=== PATIENT | male | born 1990 | race Caucasian/White ===

== ENCOUNTER → 2022-03-20 14:15 | Outpatient (CLI) | payer OTHER, SELFPAY ==
[2022-03-20 17:52] LABS: Basophils # 0.2 K/mm3 (0-0.2); Basophils % 3.3 % (0.1-2.0); Eosinophils % 0.6 % (0.1-12.0); Hematocrit 44.1 % (42.0-52.0); Hemoglobin 15.2 g/dL (14.1-18.0); Lymphocytes # 1.4 K/mm3 (0.7-4.5); Lymphocytes % 22.7 % (10-50); Mean Corpuscular HGB Conc 34.6 g/dL (31.8-35.4); Mean Corpuscular Hemoglobin 31.2 pg (27.0-31.2); Mean Corpuscular Volume 90.3 fl (80-94); Monocytes # 0.2 K/mm3 (0.1-1.0); Monocytes % 3.4 % (1.7-9.3); Neutrophils # 4.2 K/mm3 (1.8-7.8); Platelet Count 275 K/mm3 (142-424); Red Blood Count 4.88 M/mm3 (4.60-6.20); Red Cell Distribution Width 13.4 % (11.5-17.5)
[2022-03-20 17:55] LABS: Alanine Aminotransferase 19 U/L (12-78); Albumin Level 4.8 g/dl (3.5-5.0); Albumin/Globulin Ratio 1.8 (1.1-1.8); Alkaline Phosphatase 101 U/L (38-126); Anion Gap 10.7 mEq/L (5-15); Aspartate Amino Transferase 29 U/L (17-59); Bilirubin,Total 0.5 mg/dl (0.2-1.3); Blood Urea Nitrogen 8 mg/dl (9-20); Calcium 9.6 mg/dl (8.4-10.2); Carbon Dioxide 28 mmol/L (22.0-30.0); Chloride 104 mmol/L (98-107); Chol/HDL Ratio 3.4 (1-3.5); Cholesterol 165 mg/dl (140-200); Estimated Glomerular Filt Rate 111 ml/min (>60); GFR (African American) 135 ML/MIN (>60); Globulin 2.6 g/dL (1.3-3.2); Glucose 101 mg/dl (74-100); HDL Cholesterol 48 mg/dl (40-60); Potassium 3.7 mmoL/L (3.5-5.1); Sodium 139 mmol/L (136-145); Total Protein,Serum 7.4 g/dl (6.3-8.2); Triglycerides 57 mg/dl (30-150); VLDL Cholesterol 11 mg/dL (0-40)
[2022-03-20 18:06] LABS: Direct LDL Cholesterol 99.28 mg/dL (100-129)
[2022-03-20 18:11] LABS: Free T4 (Free Thyroxine) 1.24 ng/dl (0.78-2.19)
[2022-03-20 18:26] LABS: Thyroid Stimulating Hormone 0.69 uIU/mL (0.465-4.68)
== END ==
PROVIDERS: PCP Emergency Medicine; Visit Provider Emergency Medicine
DX: R53.83 Other fatigue (principal)
CPT/HCPCS: 80053; 80061; 84439; 84443; 85025

== ENCOUNTER → 2022-04-08 14:22 | Outpatient (CLI) | payer OTHER, SELFPAY ==
[2022-04-08 14:18] LABS: Amphetamine/Metha Screen,Urine Negative ng/ml (<1000)
[2022-04-08 14:19] LABS: Barbiturates Screen,Urine Negative ng/ml (<200)
[2022-04-08 14:20] LABS: Benzodiazepines Screen,Urine Negative ng/ml (<200)
[2022-04-08 14:21] LABS: Cannabinoid Screen,Urine Positive ng/ml (<50); Cocaine Screen,Urine Negative ng/ml (<300)
[2022-04-08 14:23] LABS: Methadone Screen,Urine Negative ng/ml (<300)
[2022-04-08 14:24] LABS: Opiate Screen,Urine Positive ng/ml (<300); Phencyclidine Screen,Urine Negative ng/ml (<25)
== END ==
PROVIDERS: PCP Emergency Medicine; Visit Provider Emergency Medicine
DX: Z79.899 Other long term (current) drug therapy (principal)
CPT/HCPCS: 80305

== ENCOUNTER → 2022-05-06 17:19 | Outpatient (CLI) | payer OTHER, SELFPAY ==
[2022-05-06 17:28] LABS: Adenovirus,PCR Not Detected (NotDetected); Bordetella Pertussis Not Detected (NotDetected); Chlamydophila Pneumoniae, PCR Not Detected (NotDetected); Coronavirus 229E Not Detected (NotDetected); Coronavirus NL63 Not Detected (NotDetected); Coronavirus OC43 Not Detected (NotDetected); Coronovirus HKU1,PCR Not Detected (NotDetected); Human Metapneumovirus Not Detected (NotDetected); Influenza A, PCR Not Detected (NotDetected); Influenza AH1, 2009 Not Detected (NotDetected); Influenza AH1, PCR Not Detected (NotDetected); Influenza AH3,PCR Not Detected (NotDetected); Influenza B, PCR Not Detected (NotDetected); Mycoplasma Pneumoniae, PCR Not Detected (NotDetected); Parainfluenza 1, PCR Not Detected (NotDetected); Parainfluenza 2, PCR Not Detected (NotDetected); Parainfluenza 3, PCR Not Detected (NotDetected); Parainfluenza 4, PCR Not Detected (NotDetected); Respiratory Syncytial Virus Not Detected (NotDetected); Rhinovirus/Enterovirus Not Detected (NotDetected)
[2022-05-06 23:16] LABS: Coronavirus 19, PCR Detected (NotDetected)
== END ==
PROVIDERS: PCP Nurse Practitioner Family; Visit Provider Nurse Practitioner Family
DX: U07.1 COVID-19 (principal)
CPT/HCPCS: 87581; 87632; 87798; C9803; U0003; U0005

== ENCOUNTER → 2022-05-07 06:32 | Outpatient (CLI) | payer OTHER, SELFPAY | PROVIDERS: PCP Nurse Practitioner Family; Visit Provider Nurse Practitioner Family | DX: U07.1 COVID-19 (principal) ==

== ENCOUNTER → 2022-07-21 15:45 | Outpatient (CLI) | payer OTHER, SELFPAY ==
[2022-07-21 19:02] LABS: Barbiturates Screen,Urine Negative ng/ml (<200)
[2022-07-21 19:03] LABS: Amphetamine/Metha Screen,Urine Negative ng/ml (<1000)
[2022-07-21 19:04] LABS: Benzodiazepines Screen,Urine Negative ng/ml (<200); Cannabinoid Screen,Urine Positive ng/ml (<50)
[2022-07-21 19:05] LABS: Cocaine Screen,Urine Negative ng/ml (<300); Methadone Screen,Urine Negative ng/ml (<300)
[2022-07-21 19:06] LABS: Opiate Screen,Urine Positive ng/ml (<300)
[2022-07-21 19:07] LABS: Phencyclidine Screen,Urine Negative ng/ml (<25)
== END ==
PROVIDERS: PCP Emergency Medicine; Visit Provider Emergency Medicine
DX: Z79.899 Other long term (current) drug therapy (principal)
CPT/HCPCS: 80305

== ENCOUNTER → 2022-08-28 15:20 | Outpatient (CLI) | payer OTHER, SELFPAY ==
[2022-08-28 20:15] LABS: Amphetamine/Metha Screen,Urine Negative ng/ml (<1000)
[2022-08-28 20:16] LABS: Barbiturates Screen,Urine Negative ng/ml (<200)
[2022-08-28 20:17] LABS: Benzodiazepines Screen,Urine Negative ng/ml (<200); Cannabinoid Screen,Urine Negative ng/ml (<50)
[2022-08-28 20:18] LABS: Cocaine Screen,Urine Negative ng/ml (<300); Methadone Screen,Urine Negative ng/ml (<300)
[2022-08-28 20:19] LABS: Opiate Screen,Urine Negative ng/ml (<300)
[2022-08-28 20:20] LABS: Phencyclidine Screen,Urine Negative ng/ml (<25)
== END ==
PROVIDERS: PCP Emergency Medicine; Visit Provider Emergency Medicine
DX: Z79.899 Other long term (current) drug therapy (principal)
CPT/HCPCS: 80305

== ENCOUNTER → 2022-10-26 09:30 | Outpatient (CLI) | payer OTHER, SELFPAY ==
[2022-10-26 19:22] LABS: Amphetamine/Metha Screen,Urine Negative ng/ml (<1000)
[2022-10-26 19:23] LABS: Barbiturates Screen,Urine Negative ng/ml (<200)
[2022-10-26 19:24] LABS: Benzodiazepines Screen,Urine Negative ng/ml (<200); Cannabinoid Screen,Urine Positive ng/ml (<50)
[2022-10-26 19:25] LABS: Cocaine Screen,Urine Negative ng/ml (<300); Methadone Screen,Urine Negative ng/ml (<300)
[2022-10-26 19:27] LABS: Opiate Screen,Urine Positive ng/ml (<300); Phencyclidine Screen,Urine Negative ng/ml (<25)
== END ==
PROVIDERS: PCP Emergency Medicine; Visit Provider Emergency Medicine
DX: Z79.899 Other long term (current) drug therapy (principal)
CPT/HCPCS: 80305

== ENCOUNTER → 2022-12-18 13:57 | Outpatient (CLI) | payer OTHER, SELFPAY ==
[2022-12-18 16:10] LABS: Amphetamine/Metha Screen,Urine Negative ng/ml (<1000)
[2022-12-18 16:11] LABS: Barbiturates Screen,Urine Negative ng/ml (<200)
[2022-12-18 16:12] LABS: Benzodiazepines Screen,Urine Negative ng/ml (<200); Cannabinoid Screen,Urine Positive ng/ml (<50)
[2022-12-18 16:13] LABS: Cocaine Screen,Urine Negative ng/ml (<300)
[2022-12-18 16:14] LABS: Methadone Screen,Urine Negative ng/ml (<300)
[2022-12-18 16:20] LABS: Phencyclidine Screen,Urine Negative ng/ml (<25)
[2022-12-18 16:22] LABS: Opiate Screen,Urine Negative ng/ml (<300)
== END ==
PROVIDERS: PCP Emergency Medicine; Visit Provider Emergency Medicine
DX: M54.12 Radiculopathy, cervical region (principal)
CPT/HCPCS: 80305

== ENCOUNTER → 2023-02-10 10:04 | Outpatient (CLI) | payer OTHER, SELFPAY ==
[2023-02-10 14:39] LABS: Amphetamine/Metha Screen,Urine Negative ng/ml (<1000); Barbiturates Screen,Urine Negative ng/ml (<200)
[2023-02-10 14:40] LABS: Benzodiazepines Screen,Urine Negative ng/ml (<200)
[2023-02-10 14:41] LABS: Cannabinoid Screen,Urine Positive ng/ml (<50); Cocaine Screen,Urine Negative ng/ml (<300)
[2023-02-10 14:42] LABS: Methadone Screen,Urine Negative ng/ml (<300)
[2023-02-10 14:43] LABS: Opiate Screen,Urine Positive ng/ml (<300); Phencyclidine Screen,Urine Negative ng/ml (<25)
== END ==
PROVIDERS: PCP Emergency Medicine; Visit Provider Emergency Medicine
DX: Z79.899 Other long term (current) drug therapy (principal)
CPT/HCPCS: 80305

== ENCOUNTER → 2023-04-09 13:42 | Outpatient (CLI) | payer OTHER, SELFPAY ==
[2023-04-09 14:06] LABS: Amphetamine/Metha Screen,Urine Negative ng/ml (<1000); Barbiturates Screen,Urine Negative ng/ml (<200)
[2023-04-09 14:07] LABS: Benzodiazepines Screen,Urine Negative ng/ml (<200)
[2023-04-09 14:08] LABS: Cannabinoid Screen,Urine Positive ng/ml (<50); Cocaine Screen,Urine Negative ng/ml (<300)
[2023-04-09 14:09] LABS: Methadone Screen,Urine Negative ng/ml (<300)
[2023-04-09 14:10] LABS: Opiate Screen,Urine Negative ng/ml (<300); Phencyclidine Screen,Urine Negative ng/ml (<25)
== END ==
PROVIDERS: PCP Emergency Medicine; Visit Provider Emergency Medicine
DX: M54.12 Radiculopathy, cervical region (principal)
CPT/HCPCS: 80305

== ENCOUNTER → 2023-06-07 23:23 | Outpatient (CLI) | payer OTHER, SELFPAY ==
[2023-06-07 19:19] LABS: Amphetamine/Metha Screen,Urine Negative ng/ml (<1000); Barbiturates Screen,Urine Negative ng/ml (<200); Benzodiazepines Screen,Urine Negative ng/ml (<200); Cannabinoid Screen,Urine Positive ng/ml (<50); Cocaine Screen,Urine Negative ng/ml (<300); Methadone Screen,Urine Negative ng/ml (<300); Opiate Screen,Urine Positive ng/ml (<300); Phencyclidine Screen,Urine Negative ng/ml (<25)
== END ==
PROVIDERS: PCP Emergency Medicine; Visit Provider Emergency Medicine
DX: Z79.899 Other long term (current) drug therapy (principal)
CPT/HCPCS: 80305

== ENCOUNTER → 2023-08-30 16:31 | Outpatient (CLI) | payer OTHER, SELFPAY ==
[2023-08-30 11:30] LABS: Chloride 102 mmol/L (98-107); Potassium 4.2 mmoL/L (3.5-5.1); Sodium 140 mmol/L (136-145)
[2023-08-30 11:32] LABS: Alanine Aminotransferase 33 U/L (12-78); Aspartate Amino Transferase 40 U/L (17-59); Blood Urea Nitrogen 6 mg/dl (9-20); Estimated Glomerular Filt Rate 110 ml/min (>60); GFR (African American) 133 ML/MIN (>60)
[2023-08-30 11:33] LABS: Albumin Level 4.7 g/dl (3.5-5.0); Albumin/Globulin Ratio 1.7 (1.1-1.8); Alkaline Phosphatase 79 U/L (38-126); Anion Gap 13.2 mEq/L (5-15); Basophils # 0.1 K/mm3 (0-0.2); Basophils % 0.7 % (0.1-2.0); Bilirubin,Total 0.4 mg/dl (0.2-1.3); Calcium 9.3 mg/dl (8.4-10.2); Carbon Dioxide 29 mmol/L (22.0-30.0); Chol/HDL Ratio 4.5 (1-3.5); Cholesterol 197 mg/dl (140-200); Eosinophils # 0.3 K/mm3 (0.0-0.4); Eosinophils % 4.5 % (0.1-12.0); Globulin 2.8 g/dL (1.3-3.2); Glucose 147 mg/dl (74-100); HDL Cholesterol 44 mg/dl (40-60); Hematocrit 45.9 % (42.0-52.0); Lymphocytes % 26.9 % (10-50); Mean Corpuscular Hemoglobin 32.3 pg (27.0-31.2); Mean Corpuscular Volume 92.3 fl (80-94); Monocytes # 0.4 K/mm3 (0.1-1.0); Monocytes % 4.9 % (1.7-9.3); Neutrophils # 4.6 K/mm3 (1.8-7.8); Neutrophils % 62.9 % (37.0-80.0); Platelet Count 206 K/mm3 (142-424); Red Blood Count 4.97 M/mm3 (4.60-6.20); Red Cell Distribution Width 13.4 % (11.5-17.5); Total Protein,Serum 7.5 g/dl (6.3-8.2); Triglycerides 146 mg/dl (30-150); VLDL Cholesterol 29 mg/dL (0-40); White Blood Count 7.4 K/mm3 (4.8-10.8)
[2023-08-30 11:44] LABS: Direct LDL Cholesterol 119.83 mg/dL (100-129)
[2023-08-30 11:49] LABS: 25-OH Vitamin D, Total 33.9 ng/mL (30-100); T4 (Thyroxine) 5.4 ug/dl (5.53-11.0)
[2023-08-30 12:02] LABS: Thyroid Stimulating Hormone 0.56 uIU/mL (0.465-4.68)
[2023-08-30 12:53] LABS: Barbiturates Screen,Urine Negative ng/ml (<200)
[2023-08-30 12:54] LABS: Benzodiazepines Screen,Urine Positive ng/ml (<200)
[2023-08-30 12:55] LABS: Amphetamine/Metha Screen,Urine Negative ng/ml (<1000)
[2023-08-30 12:56] LABS: Cocaine Screen,Urine Negative ng/ml (<300)
[2023-08-30 12:57] LABS: Cannabinoid Screen,Urine Positive ng/ml (<50); Methadone Screen,Urine Negative ng/ml (<300)
[2023-08-30 12:58] LABS: Opiate Screen,Urine Positive ng/ml (<300)
[2023-08-30 12:59] LABS: Phencyclidine Screen,Urine Negative ng/ml (<25)
[2023-08-30 19:41] LABS: Hemoglobin A1C 5.3 % (4.0-6.0)
== END ==
PROVIDERS: PCP Emergency Medicine; Visit Provider Emergency Medicine
DX: M79.2 Neuralgia and neuritis, unspecified (principal); Z79.899 Other long term (current) drug therapy; E11.9 Type 2 diabetes mellitus without complications; Z68.21 Body mass index [BMI] 21.0-21.9, adult
CPT/HCPCS: 80053; 80061; 80305; 82306; 83036; 84436; 84443; 85025

== ENCOUNTER → 2023-09-20 16:19 | Outpatient (CLI) | payer OTHER, SELFPAY ==
[2023-09-20 16:18] LABS: Amphetamine/Metha Screen,Urine Negative ng/ml (<1000)
[2023-09-20 16:19] LABS: Barbiturates Screen,Urine Negative ng/ml (<200)
[2023-09-20 16:20] LABS: Cannabinoid Screen,Urine Positive ng/ml (<50)
[2023-09-20 16:21] LABS: Cocaine Screen,Urine Negative ng/ml (<300); Methadone Screen,Urine Negative ng/ml (<300)
[2023-09-20 16:22] LABS: Opiate Screen,Urine Negative ng/ml (<300)
[2023-09-20 16:23] LABS: Phencyclidine Screen,Urine Negative ng/ml (<25)
[2023-09-20 18:38] LABS: Benzodiazepines Screen,Urine Negative ng/ml (<200)
== END ==
PROVIDERS: PCP Emergency Medicine; Visit Provider Emergency Medicine
DX: M79.2 Neuralgia and neuritis, unspecified (principal); Z79.899 Other long term (current) drug therapy
CPT/HCPCS: 80305

== ENCOUNTER → 2023-10-27 08:46 | Outpatient (CLI) | payer OTHER, SELFPAY ==
[2023-10-27 21:45] LABS: Amphetamine/Metha Screen,Urine Negative ng/ml (<1000); Barbiturates Screen,Urine Negative ng/ml (<200)
[2023-10-27 21:46] LABS: Benzodiazepines Screen,Urine Negative ng/ml (<200)
[2023-10-27 21:47] LABS: Cannabinoid Screen,Urine Positive ng/ml (<50); Cocaine Screen,Urine Negative ng/ml (<300)
[2023-10-27 21:48] LABS: Methadone Screen,Urine Negative ng/ml (<300); Opiate Screen,Urine Positive ng/ml (<300)
[2023-10-27 21:50] LABS: Phencyclidine Screen,Urine Negative ng/ml (<25)
== END ==
LOC: LAB.DROPOF 11-03 08:46
PROVIDERS: PCP Internal Medicine; Visit Provider Internal Medicine
DX: Z79.899 Other long term (current) drug therapy (principal)
CPT/HCPCS: 80307

== ENCOUNTER 2023-11-22 12:27 | Outpatient (CLI) | payer OTHER, SELFPAY ==
[2023-11-22 18:39] LABS: Amphetamine/Metha Screen,Urine Negative ng/ml (<1000); Barbiturates Screen,Urine Negative ng/ml (<200); Benzodiazepines Screen,Urine Negative ng/ml (<200); Cannabinoid Screen,Urine Positive ng/ml (<50); Cocaine Screen,Urine Negative ng/ml (<300); Methadone Screen,Urine Negative ng/ml (<300); Opiate Screen,Urine Positive ng/ml (<300); Phencyclidine Screen,Urine Negative ng/ml (<25)
== END 2023-11-22 23:59 ==
LOC: LAB.DROPOF 12:28
PROVIDERS: PCP Internal Medicine; Visit Provider Internal Medicine
DX: Z79.899 Other long term (current) drug therapy (principal)
CPT/HCPCS: 80307